=== PATIENT | female | born 1965 | race Caucasian/White ===

== ENCOUNTER 2018-12-03 10:42 | Outpatient (REF) | payer BC, SELFPAY ==
[2018-12-03 19:53] LABS: TSH (W/Ref FT4) 1.08 uIU/mL (0.358-3.74)
== END 2018-12-03 11:02 ==
LOC: NCHCN 10:42
PROVIDERS: PCP Nurse Practitioner; Visit Provider Nurse Practitioner
DX: R53.83 Other fatigue (principal)
CPT/HCPCS: 84443

== ENCOUNTER 2019-01-19 00:12 | Outpatient (CLI) | payer BC, SELFPAY ==
--- NOTE | 2019-01-19 09:52 | DI.MAMMO_ITS ---
SYMPTOMS/DIAGNOSIS: [facility], Z00.00 MAMMOGRAMS: Mammograms were interpreted according to the usual protocol including computer analysis with CAD system, tomosynthesis and C view imaging. The breast tissue is heterogeneously radiodense, which lowers the sensitivity of the study. There is no dominant mass. There are no suspicious calcifications and there has been no significant interval change when compared with prior images. SUMMARY: No evidence of malignancy, category 1. Yearly screening mammography is recommended. Breast density category C. SA ASSESSMENT OF FINDINGS: Negative. Category 1. Patient will receive a letter notifying them of these results. Bi-RADS category C. The breasts are heterogeneously dense, which may obscure small masses.
== END 2019-01-19 00:32 ==
PROVIDERS: PCP Nurse Practitioner; Visit Provider Nurse Practitioner
DX: Z12.31 Encounter for screening mammogram for malignant neoplasm of breast (principal); Z00.00 Encounter for general adult medical examination without abnormal findings
CPT/HCPCS: 77063; 77067

== ENCOUNTER 2020-04-19 08:00 | Outpatient (REF) | payer BC, SELFPAY ==
[2020-04-19 14:15] LABS: Calculated LDL 206 mg/dL (<100); Cholesterol 286 mg/dL (<200); Glucose 90 mg/dL (74-106); HDL Cholesterol 57 mg/dL (40-60); TSH (W/Ref FT4) 1.34 uIU/mL (0.36-3.74); Triglyceride 115 mg/dL (<150)
[2020-04-20 04:51] LABS: Vitamin D 25 Total 33.1 ng/ml (30-100)
== END 2020-04-19 08:20 ==
LOC: NCHCN 08:00
PROVIDERS: PCP Nurse Practitioner; Visit Provider Nurse Practitioner
DX: Z13.1 Encounter for screening for diabetes mellitus (principal); Z13.220 Encounter for screening for lipoid disorders; Z13.21 Encounter for screening for nutritional disorder; R53.83 Other fatigue
CPT/HCPCS: 80061; 82306; 82947; 84443

== ENCOUNTER 2021-01-02 10:16 | Outpatient (REF) | payer BC, SELFPAY ==
[2021-01-02 16:37] LABS: Calculated LDL 204 mg/dL (<100); Cholesterol 287 mg/dL (<200); HDL Cholesterol 57 mg/dL (40-60); Triglyceride 132 mg/dL (<150)
[2021-01-02 21:11] LABS: CRP, High Sensitivity 0.48 mg/L (See Note)
== END 2021-01-02 10:17 | disposition home or self-care (01) ==
LOC: NCHCN 10:16
PROVIDERS: PCP Nurse Practitioner; Visit Provider Nurse Practitioner
DX: E78.5 Hyperlipidemia, unspecified (principal)
CPT/HCPCS: 80061; 86141

== ENCOUNTER 2021-01-04 01:50 | Outpatient (CLI) | payer BC, SELFPAY ==
--- NOTE | 2021-01-04 12:30 | DI.RAD_ITS ---
EXAM: XR LUMBAR SPINE COMPLETE CLINICAL HISTORY: CHRONIC LOW BACK PAIN, M54.5. TECHNIQUE: 2D digital imaging was performed. COMPARISON: No exams were available for comparison FINDINGS: There is no evidence of fracture. However, there is advanced disc space narrowing at L3-4 level, mor e so on the right side of this disc space than the left side and there is an element of retrolisthesi s of L3 relative to L4 seen on the lateral view. There is also significant disc space narrowing at L 4-5 and L5-S1 levels which is relatively symmetrical, perhaps slightly more so on the right side. Ri ght-sided osteophytes are noted at L3-4 and L4-5 levels. Sacroiliac joints appear unremarkable. Deg enerative disc disease also noted in the lower lumbar spine. Some degenerative changes are evident i n the facet joints, most evident at L2-3 level left side. IMPRESSION: Degenerative disc disease. Degenerative retrolisthesis L3 relative to L4. DATA REPOSITORY: RADIATION DOSE DELIVERED:
== END 2021-01-04 02:10 ==
PROVIDERS: PCP Nurse Practitioner; Visit Provider Nurse Practitioner
DX: M54.5 Low back pain (principal); M51.37 Other intervertebral disc degeneration, lumbosacral region
CPT/HCPCS: 72110

== ENCOUNTER 2021-01-22 01:52 | Outpatient (CLI) | payer BC, SELFPAY ==
--- NOTE | 2021-01-22 | DI.MAMMO_ITS ---
EXAM: MG MAMMO SCREENING CLINICAL HISTORY: SCREENING, Z12.39. TECHNIQUE: Bilateral full field digital CC and MLO mammographic images were obtained with 3D tomosyn thesis and utilizing computer aided detection (CAD). COMPARISON: Prior mammogram performed January 2019 her baseline 2010 mammogram is apparently not avail able at the time of this dictation. FINDINGS: The fibroglandular tissue is moderately dense, this decreasing the sensitivity mammogram for finding in underlying lesions. In the medial aspect of the left breast approximately 7 cm in from the nipple there is a spiculated d ensity measuring 6 x 5 millimeters which was not evident on the 2019 mammogram and which is suspiciou s and requires additional spot compression view and ultrasound. On the ipsilateral MLO view there is a asymmetric density seen inferiorly measuring 5 x 5 millimeters located 5-6 cm in from the nipple w hich is unchanged from 2019. There are few benign microcalcifications in the left breast noted. No malignant-appearing microcalcification groups. In the opposite-right breast there is an asymmetric density located medially which is approximately 6 cm in from the nipple and measures approximately 1.5 x 0.8 cm but is unchanged from 2019. No new architectural distortion or skin thickening-traction. IMPRESSION: Asymmetric densities bilaterally. One in the medial aspect of the left breast was not evident on the prior study and is concerning. Spot compression views of both breasts as well as bilateral breast u ltrasound are recommended. BI-RADS Category 0 - Assessment Incomplete: Need additional imaging evaluation Breast Density - Category C - Heterogeneously dense Breast density Category C or D implies that the patient has dense breast tissue. Dense breast tissue can make it harder to find cancer on a mammogram. Dense breast tissue is also associated with an incr eased risk of breast cancer. This information about the result of the mammogram report was provided to the patient to raise their awareness. Use this report when you speak with the patient about their risks for breast cancer, which includes their family history. At that time, you may recommend additional screening tests (Ultrasoun d or MRI) as these tests may add significant information. A negative radiographic report should not delay biopsy if a dominant or clinically suspicious mass is present. Up to ten percent of cancers are not identified on mammography. A negative report may reinforce clinical impression. Adenosis and dense breasts may obscure an underlying neoplasm. False positive reports average 6 to 10%. Patient will receive a letter notifying them of these results.
== END 2021-01-22 02:12 ==
PROVIDERS: PCP Nurse Practitioner; Visit Provider Nurse Practitioner
DX: Z12.31 Encounter for screening mammogram for malignant neoplasm of breast (principal); R92.8 Other abnormal and inconclusive findings on diagnostic imaging of breast
CPT/HCPCS: 77063; 77067

== ENCOUNTER 2021-02-06 01:18 | Outpatient (CLI) | payer BC, MEDICAID, SELFPAY ==
--- NOTE | 2021-02-06 | DI.US_ITS ---
Exam(s) US BREAST RT LIMITED US BREAST LT LIMITED MG MAMMO SCREEN CALL BACK BI EXAM: MG MAMMO SCREEN CALL BACK BI and bilateral U/S breast limited CLINICAL HISTORY: F/U MAMMO, LT BREAST SPICULATED DENSITY,RT BREAST ASYMMETRIC DENSITY. TECHNIQUE: Craniocaudal and mediolateral oblique Full Field Digital Mammography views of the bilater al breast with Computer Aided Diagnosis followed by Tomosynthesis and bilateral breast ultrasound. COMPARISON: Priors are available for comparison. FINDINGS: Mammography/Tomosynthesis: Masses/Architectural Distortion: None seen. Microcalcifictions: No suspicious pleomorphic-type are seen. Skin Thickening/Nipple Retraction: None. Bilateral breast US: Targeted bilateral breast ultrasound was obtained. Echotexture: Normal appearance of the glandular tissue. Shadowing: No suspicious foci. Cyst: None. Solid lesions: None seen. Ductal dilation: None. IMPRESSION: 1. No evidence of malignancy is noted. 2. A six-month follow-up bilateral mammogram is recommended for re-evaluation. 3. The findings were discussed with the patient on the date of the examination. BI-RADS Category 3 - 6 month - Probably Benign Finding: Recommend follow-up imaging in 6 months Breast Density - Category C - Heterogeneously dense Breast density Category C or D implies that the patient has dense breast tissue. Dense breast tissue can make it harder to find cancer on a mammogram. Dense breast tissue is also associated with an incr eased risk of breast cancer. This information about the result of the mammogram report was provided to the patient to raise their awareness. Use this report when you speak with the patient about their risks for breast cancer, which includes their family history. At that time, you may recommend additional screening tests (Ultrasoun d or MRI) as these tests may add significant information. A negative radiographic report should not delay biopsy if a dominant or clinically suspicious mass is present. Up to ten percent of cancers are not identified on mammography. A negative report may reinforce clinical impression. Adenosis and dense breasts may obscure an underlying neoplasm. False positive reports average 6 to 10%. Patient will receive a letter notifying them of these results.
== END 2021-02-06 01:38 ==
PROVIDERS: PCP Nurse Practitioner; Visit Provider Nurse Practitioner
DX: Z12.31 Encounter for screening mammogram for malignant neoplasm of breast (principal); R92.8 Other abnormal and inconclusive findings on diagnostic imaging of breast; N64.59 Other signs and symptoms in breast
CPT/HCPCS: 76642; 77063; 77067

== ENCOUNTER 2021-05-18 03:16 | Outpatient (CLI) | payer MEDICAID, SELFPAY ==
--- NOTE | 2021-05-18 14:16 | DI.RAD_ITS ---
Exam(s) XR CERVICAL SPINE COMP 4-5V EXAM: XR CERVICAL SPINE COMP 4-5V CLINICAL HISTORY: CERVICALGIA,M54.2. TECHNIQUE: 2D digital imaging was performed. COMPARISON: No exams were available for comparison FINDINGS: The odontoid is intact. The lateral masses are well aligned. There is reversal of the normal cervic al lordosis centered at C5. There is disc space narrowing at C5-C6 and C6-C7. Endplate osteophytes are seen throughout the cervical spine with sparing of the C2-3 level. No acute fractures or subluxa tions are present. There is mild narrowing of the neural foramen on the right at C4-5 and C6-C7 and moderate narrowing at C5-C6. There is mild neural foraminal narrowing on the left at C4-5 through C6 -C7. IMPRESSION: Bqnk-hc-dicchwfl cervical spondylosis. DATA REPOSITORY: RADIATION DOSE DELIVERED:
== END 2021-05-18 03:36 ==
PROVIDERS: PCP Nurse Practitioner; Visit Provider Nurse Practitioner
DX: M47.812 Spondylosis without myelopathy or radiculopathy, cervical region (principal)
CPT/HCPCS: 72050

== ENCOUNTER 2021-11-08 01:33 | Outpatient (CLI) | payer MEDICAID, SELFPAY ==
--- NOTE | 2021-11-08 14:18 | DI.MAMMO_ITS ---
Exam(s) MAMMO DIAGNOSTIC BI EXAM: MAMMO DIAGNOSTIC BI CLINICAL HISTORY: 6-MO F/U ABNL MAMMO, R92.8 TECHNIQUE: Mammograms were interpreted according to the usual protocol including computer analysis w ith CAD system, tomosynthesis and C-view imaging. COMPARISON: FINDINGS: The breasts are heterogeneously dense. No dominant mass or clumped microcalcification is identified in either breast. The current examination is compared with previous examinations including January and there has been no gross interval change in appearance comparison with prior studies. Areas of questionable asymmetric density noted on prior examination are unchanged or less prominent today. IMPRESSION: No specific evidence of malignancy at this time. Follow-up mammogram suggested in 12 months. BI-RADS Category 2 - Benign Findings Breast Density - Category C - Heterogeneously dense
== END 2021-11-08 01:53 ==
PROVIDERS: PCP Nurse Practitioner; Visit Provider Nurse Practitioner
DX: R92.8 Other abnormal and inconclusive findings on diagnostic imaging of breast (principal); N64.59 Other signs and symptoms in breast
CPT/HCPCS: 77062; 77066; G0279

== ENCOUNTER 2022-01-24 14:09 | Outpatient (REF) | payer MEDICAID, SELFPAY ==
--- NOTE | 2022-01-24 11:04 | PAPFT_PTH ---
PATIENT: Asuncion Rausch LOC: NCN #:[id number] AGE/SX: 56/F ROOM: RE01/24/[address]: Loren Marks : 1965 BED: DIS: 01/24/2022 SPEC #: [id number] RECD: 01/24/22 17:08 STATUS: RODNEY SANCHEZ #: [id number] YESSENIA: 01/24/22 11:[address]: Loren Marks DEPT: [facility] Cytology RECD BY: Rema Andrew Tissues: 1 - CX/ENDOCX FOR PAP SMEARS Procedures: PAP THIN PREP/UVM Screening HPV DNA PROBE Comments: [id number]
== END 2022-01-24 14:10 | disposition home or self-care (01) ==
LOC: NCHCN 14:09
PROVIDERS: PCP Nurse Practitioner; Visit Provider Nurse Practitioner Family
DX: Z12.4 Encounter for screening for malignant neoplasm of cervix (principal); Z11.51 Encounter for screening for human papillomavirus (HPV)
CPT/HCPCS: 88142; 87624

== ENCOUNTER 2022-03-12 08:37 | Outpatient (REF) | payer MEDICAID, SELFPAY ==
[2022-03-12 15:47] LABS: Anion Gap 9.7 mmol/L (3-11); BUN 15 mg/dL (7-18); CO2 25.3 mmol/L (21.0-32.0); CREATININE 0.8 mg/dL (0.55-1.02); Calcium 8.8 mg/dL (8.5-10.1); Calculated LDL 103 mg/dL (<100); Chloride 103 mmol/L (98-107); Cholesterol 174 mg/dL (<200); Glucose 97 mg/dL (74-106); HDL Cholesterol 58 mg/dL (40-60); Potassium 4.2 mmol/L (3.5-5.1); Sodium 138 mmol/L (136-145); Triglyceride 69 mg/dL (<150)
== END 2022-03-12 08:38 | disposition home or self-care (01) ==
LOC: NCHCN 08:37
PROVIDERS: PCP Nurse Practitioner Family; Visit Provider Nurse Practitioner Family
DX: E78.5 Hyperlipidemia, unspecified (principal)
CPT/HCPCS: 80048; 80061

== ENCOUNTER 2022-12-16 17:30 | Outpatient (CLI) | payer MEDICAID, SELFPAY ==
--- NOTE | 2022-12-16 | DI.RAD_ITS ---
Exam(s) XR CERVICAL SPINE COMP 4-5V EXAM: XR CERVICAL SPINE COMP 4-5V CLINICAL HISTORY: UPPER BACK PAIN, M54.9. TECHNIQUE: 2D digital imaging was performed. Six images were obtained. AP, odontoid, lateral and chandrika ateral oblique images were obtained. COMPARISON: CR XR CERVICAL SPINE COMP 4-5V from 05/18/2021 FINDINGS: The odontoid is intact. The lateral masses are well aligned. There is straightening of the normal ce rvical lordosis. There are endplate osteophytes from C3-C4 through C7-T1. Disc space narrowing is s een at C5-6 and C6-C7. No acute fracture or subluxation is present. There is mild narrowing of the ne ural foramen on the left at C4-C5 and on the right at C6-C7 and C7-T1. The cervical thoracic junction is well maintained. The prevertebral soft tissues are unremarkable. Lung apices are clear. IMPRESSION: Moderate cervical spondylosis. DATA REPOSITORY: RADIATION DOSE DELIVERED:
--- NOTE | 2022-12-16 | DI.RAD_ITS ---
Exam(s) XR SHOULDER LT COMPLETE 2+V EXAM: XR SHOULDER LT COMPLETE 2+V CLINICAL HISTORY: UPPER BACK PAIN, M54.9. TECHNIQUE: 2D digital imaging was performed of the left shoulder. Five images were obtained. AP, G rashey, Y-view and axillary views were obtained. COMPARISON: No exams were available for comparison FINDINGS: BONES: No acute fracture is present. No bony destructive lesion is seen. JOINTS: No dislocation present. SOFT TISSUE: Normal. IMPRESSION: Unremarkable radiographs of the left shoulder. DATA REPOSITORY: RADIATION DOSE DELIVERED:
== END 2022-12-16 17:50 ==
LOC: DI 17:30
PROVIDERS: PCP Nurse Practitioner Family; Visit Provider Nurse Practitioner Family
DX: M54.89 Other dorsalgia (principal); M25.512 Pain in left shoulder; M54.2 Cervicalgia; M50.322 Other cervical disc degeneration at C5-C6 level; M50.323 Other cervical disc degeneration at C6-C7 level; M47.812 Spondylosis without myelopathy or radiculopathy, cervical region
CPT/HCPCS: 72050; 73030

== ENCOUNTER 2023-01-20 15:15 | Outpatient (REF) | payer MEDICAID, SELFPAY ==
[2023-01-20 21:39] LABS: Abs Immature Grans 0.02 10^3/uL (0.0-0.06); Absolute Basophil Count 0.03 10^3/uL (0.0-0.2); Absolute Eosinophil Count 0.15 10^3/uL (0.0-0.7); Absolute Lymphocyte Count 1.59 10^3/uL (1.2-3.4); Absolute Monocyte Count 0.54 10^3/uL (0.1-0.8); Absolute Neutrophil Count 5.02 10^3/uL (1.2-6.7); Basophils % 0.4; HCT 39.8 % (36.0-46.0); HGB 13.1 g/dL (11.2-15.7); Immature Grans % 0.3; Lymphocytes % 21.6; MCH 29.1 pg (27.0-33.0); MCHC 32.9 % (32.0-36.0); MCV 88 fL (80-95); MPV 10.2 fL (8.0-11.0); Monocytes % 7.3; Neutrophils % 68.4; Platelet Count 288 10^3/uL (130-400); RDW 12.3 % (11.7-14.6); WBC 7.35 10^3/uL (4.4-10.8)
[2023-01-20 21:55] LABS: Iron 86 ug/dL (50-170); Total Iron Binding Capacity 305 ug/dL (250-450); Transferrin Sat 28 % (15-50)
[2023-01-20 21:57] LABS: Hemoglobin A1C 5.9 % (<5.7)
[2023-01-20 22:17] LABS: Vitamin D 25 Total 52.2 ng/mL (30-100)
[2023-01-20 22:22] LABS: ALT 21 U/L (14-59); AST 18 U/L (15-37); Albumin 3.6 g/dL (3.4-5.0); Alkaline Phosphatase 78 U/L (46-116); Anion Gap 6.5 mmol/L (3-11); BUN 16 mg/dL (7-18); Bilirubin, Total 0.2 mg/dL (0.2-1.0); CO2 27.5 mmol/L (21.0-32.0); CREATININE 0.7 mg/dL (0.55-1.02); Calcium 8.9 mg/dL (8.5-10.1); Calculated LDL 185 mg/dL (<100); Chloride 106 mmol/L (98-107); Cholesterol 265 mg/dL (<200); Estimated GFR 99.57 (mL/min/1.73m2); Ferritin 97 ng/mL (8-252); Glucose 96 mg/dL (74-106); HDL Cholesterol 51 mg/dL (40-60); Sodium 140 mmol/L (136-145); TSH 0.72 uIU/mL (0.36-3.74); Total Protein 6.7 g/dL (6.4-8.2); Triglyceride 145 mg/dL (<150); Vitamin B12 1005 pg/mL (193-986)
[2023-01-20 22:44] LABS: FREE T4 0.86 ng/dL (0.76-1.46)
[2023-01-21 19:03] LABS: T3,Free 3.5 pg/mL (2.8-5.3)
== END 2023-01-20 15:16 | disposition home or self-care (01) ==
LOC: NCHCN 15:15
PROVIDERS: PCP Nurse Practitioner Family; Visit Provider Nurse Practitioner Family
DX: E78.5 Hyperlipidemia, unspecified (principal); R53.83 Other fatigue; R51.9 Headache, unspecified; R63.1 Polydipsia; Z83.3 Family history of diabetes mellitus; K59.00 Constipation, unspecified; R73.09 Other abnormal glucose; Z13.0 Encounter for screening for diseases of the blood and blood-forming organs and certain disorders involving the immune mechanism; Z13.21 Encounter for screening for nutritional disorder
CPT/HCPCS: 80053; 80061; 82306; 82607; 82728; 83036; 83540; 83550; 84439; 84443; 84481; 85025

== ENCOUNTER 2023-02-07 00:17 | Outpatient (CLI) | payer MEDICAID, SELFPAY ==
--- NOTE | 2023-02-07 | DI.MAMMO_ITS ---
Exam(s) US BREAST RT COMPLETE MG MAMMO DIAGNOSTIC BI EXAM: MG MAMMO DIAGNOSTIC BI AND COMPLETE RIGHT BREAST ULTRASOUND CLINICAL HISTORY: INVERTED NIPPLE,N64.59, H/O ABNL MAMMO IN 2020,R92.8. TECHNIQUE: BOTH CC AND MLO mammographic images of both breasts were obtained with 3D tomosynthesis t echnique and utilizing computer aided detection (CAD). Also performed bilateral spot compression vie ws. Also performed complete right breast ultrasound including all 4 quadrants as well as the retroareolar region. Also scanned right axilla. COMPARISON: Prior mammograms were reviewed.Prior breast ultrasound examinations February 2021 reviewed. This 57-year-old patient is apparently complaining of recent onset of right nipple inversion. Denies discharge from the nipple. Denies recent trauma/infection. FINDINGS: DIAGNOSTIC BILATERAL MAMMOGRAM: The fibroglandular tissue pattern is again noted be moderately dense. Asymmetric tissue in the medial aspect of both breasts is again noted but is unchanged from prior zack dies. Slight in the version of the right nipple appears unchanged from prior mammograms. There does not appear to be a new mass nor new architectural distortion in the retroareolar region of the right breast. Also no new malignant-appearing microcalcification groups. There are no new spiculated masses nor malignant-appearing microcalcification groups in either breast . Spot compression views of the asymmetric tissue in both breasts again render these areas less conc erning and similar in appearance to prior mammograms. There is no new architectural distortion nor skin thickening-retraction in either breast. COMPLETE RIGHT BREAST ULTRASOUND: There is no evidence of solid or significant cystic lesions in all 4 quadrants of the right breast no r in the retroareolar region. There are no dilated ducts nor inspissated ducts in the retroareolar r egion. Scanning of the right axilla is negative for adenopathy. IMPRESSION: 1. No radiographic evidence of malignancy in either breast. 2. Negative complete right breast ultrasound Appropriate follow-up is referral to breast surgeon because of the recent history of inverting right breast nipple. Might also consider breast MRI. The patient was informed of the findings and follow-up recommendations by myself prior to leaving the department today. BI-RADS Category 0 - Assessment Incomplete: Need additional imaging evaluation, specifically referral to breast surgeon. Also consider breast MRI given the recent history here. Breast Density - Category C - Heterogeneously dense Breast density Category C or D implies that the patient has dense breast tissue. Dense breast tissue can make it harder to find cancer on a mammogram. Dense breast tissue is also associated with an incr eased risk of breast cancer. This information about the result of the mammogram report was provided to the patient to raise their awareness. Use this report when you speak with the patient about their risks for breast cancer, which includes their family history. At that time, you may recommend additional screening tests (Ultrasoun d or MRI) as these tests may add significant information. A negative radiographic report should not delay biopsy if a dominant or clinically suspicious mass is present. Up to ten percent of cancers are not identified on mammography. A negative report may reinforce clinical impression. Adenosis and dense breasts may obscure an underlying neoplasm. False positive reports average 6 to 10%. Patient will receive a letter notifying them of these results.
== END 2023-02-07 00:37 ==
LOC: DI 00:19
PROVIDERS: PCP Nurse Practitioner Family; Visit Provider Nurse Practitioner Family
DX: R92.8 Other abnormal and inconclusive findings on diagnostic imaging of breast (principal); Z12.31 Encounter for screening mammogram for malignant neoplasm of breast; N64.59 Other signs and symptoms in breast
CPT/HCPCS: 76642; 77062; 77066; G0279

== ENCOUNTER 2025-01-28 15:59 | Outpatient (REF) | payer BC, SELFPAY ==
[2025-01-28 21:24] LABS: Abs Immature Grans 0.05 10^3/uL (0.0-0.06); Absolute Basophil Count 0.01 10^3/uL (0.0-0.2); Absolute Lymphocyte Count 1.27 10^3/uL (1.2-3.4); Absolute Monocyte Count 0.25 10^3/uL (0.1-0.8); Absolute Neutrophil Count 6.31 10^3/uL (1.2-6.7); Basophils % 0.1 %; HCT 40.8 % (36.0-46.0); HGB 13.6 g/dL (11.2-15.7); Immature Grans % 0.6 %; Lymphocytes % 16.1 %; MCH 29.6 pg (27.0-33.0); MCHC 33.3 % (32.0-36.0); MCV 89 fL (80-95); MPV 10.4 fL (8.0-11.0); Monocytes % 3.2 %; Platelet Count 321 10^3/uL (130-400); RBC 4.59 10^6/uL (3.93-5.22); RDW 12.2 % (11.7-14.6); RDW-SD 39.6 fL; WBC 7.89 10^3/uL (4.4-10.8)
[2025-01-28 21:36] LABS: Iron 87 ug/dL (50-170); Total Iron Binding Capacity 348 ug/dL (250-450); Transferrin Sat 25 % (15-50)
[2025-01-28 22:04] LABS: ALT 15 U/L (14-59); AST 14 U/L (15-37); Albumin 3.7 g/dL (3.4-5.0); Alkaline Phosphatase 82 U/L (46-116); Anion Gap 5.8 mmol/L (3-11); BUN 18 mg/dL (7-18); Bilirubin, Total 0.2 mg/dL (0.2-1.0); CO2 29.2 mmol/L (21.0-32.0); CREATININE 0.7 mg/dL (0.55-1.02); Calcium 9.4 mg/dL (8.5-10.1); Calculated LDL 220 mg/dL (<100); Chloride 106 mmol/L (98-107); Cholesterol 313 mg/dL (<200); Estimated GFR 98.34 (mL/min/1.73m2); Ferritin 62 ng/mL (8-252); Glucose 107 mg/dL (74-106); HDL Cholesterol 75 mg/dL (>or=50); Potassium 4.9 mmol/L (3.5-5.1); Sodium 141 mmol/L (136-145); TSH (W/Ref FT4) 0.76 uIU/mL (0.36-3.74); Total Protein 7.1 g/dL (6.4-8.2); Triglyceride 93 mg/dL (<150); Vitamin B12 821 pg/mL (193-986); Vitamin D 25 Total 37 ng/mL (30-100)
[2025-01-28 22:07] LABS: Hemoglobin A1C 5.9 % (<5.7)
[2025-01-31 11:38] LABS: Lyme Ab w Rflx to Lyme Confirm Negative (Negative)
[2025-02-01 15:09] LABS: Anaplasma phagocytophilum Negative (Negative); B. miyamotoi PCR Negative (Negative); Babesia divergens/MO-1 Negative (Negative); Babesia duncani Negative (Negative); Babesia microti Negative (Negative); Ehrlichia chaffeensis Negative (Negative); Ehrlichia ewingii/canis Negative (Negative); Ehrlichia muris eauclairensis Negative (Negative)
== END 2025-01-28 16:00 | disposition home or self-care (01) ==
LOC: NCHCN 15:59
PROVIDERS: Visit Provider Nurse Practitioner Family
DX: R53.83 Other fatigue (principal); R73.03 Prediabetes
CPT/HCPCS: 80053; 80061; 82306; 87798; 82607; 82728; 83036; 83540; 83550; 84443; 85025; 86618

== ENCOUNTER 2025-02-14 14:59 | Outpatient (REF) | payer BC, SELFPAY ==
[2025-02-14 21:36] LABS: ESR 11 mm/hr (0-30)
[2025-02-14 21:37] LABS: Abs Immature Grans 0.02 10^3/uL (0.0-0.06); Absolute Basophil Count 0.05 10^3/uL (0.0-0.2); Absolute Eosinophil Count 0.17 10^3/uL (0.0-0.7); Absolute Lymphocyte Count 2.23 10^3/uL (1.2-3.4); Absolute Neutrophil Count 4.35 10^3/uL (1.2-6.7); Basophils % 0.7 %; Eosinophils % 2.3 %; HCT 43.1 % (36.0-46.0); HGB 14.4 g/dL (11.2-15.7); Immature Grans % 0.3 %; Lymphocytes % 30.5 %; MCH 29.4 pg (27.0-33.0); MCHC 33.4 % (32.0-36.0); MCV 88 fL (80-95); MPV 10.4 fL (8.0-11.0); Monocytes % 6.8 %; Neutrophils % 59.4 %; Platelet Count 303 10^3/uL (130-400); RBC 4.89 10^6/uL (3.93-5.22); RDW 12.2 % (11.7-14.6); RDW-SD 39.6 fL; WBC 7.32 10^3/uL (4.4-10.8)
[2025-02-14 21:38] LABS: Bilirubin Negative (Negative); Blood Negative (Negative); Clarity Clear (Clear); Glucose Negative (Negative); Ketones Negative (Negative); Leukocyte Esterase Negative (Negative); Nitrite Negative (Negative); Specific Gravity <= 1.005 (1.005-1.025); Urobilinogen 0.2 mg/dL (Up to 0.2); pH 5.5 (5-8)
[2025-02-14 21:59] LABS: ALT 19 U/L (14-59); AST 17 U/L (15-37); Alkaline Phosphatase 82 U/L (46-116); Anion Gap 6.7 mmol/L (3-11); BUN 16 mg/dL (7-18); Bilirubin, Total 0.3 mg/dL (0.2-1.0); CO2 28.3 mmol/L (21.0-32.0); CREATININE 0.8 mg/dL (0.55-1.02); Calcium 9.7 mg/dL (8.5-10.1); Chloride 105 mmol/L (98-107); Estimated GFR 83.78 (mL/min/1.73m2); Glucose 86 mg/dL (74-106); Potassium 4.4 mmol/L (3.5-5.1); Sodium 140 mmol/L (136-145); TSH (W/Ref FT4) 0.91 uIU/mL (0.36-3.74); Total Protein 7.4 g/dL (6.4-8.2)
[2025-02-14 22:10] LABS: C-Reactive Protein < 0.50 mg/dL (<or=0.5)
[2025-02-15 10:18] LABS: *AMPHETAMINES SCREEN URINE Negative (Negative); *BARBITURATES SCREEN URINE Negative (Negative); *BENZODIAZEPINES SCREEN URINE Negative (Negative); Cannabinoids THC Negative (Negative); Cocaine Screen,Urine Negative (Negative); METHADONE URINE SCREEN Negative (Negative); OPIATES URINE SCREEN Negative (Negative)
[2025-02-15 10:22] LABS: Tricyclic Antidepressants Negative (Negative)
[2025-02-15 21:07] LABS: Calculated LDL 147 mg/dL (<100); Cholesterol 238 mg/dL (<200); HDL Cholesterol 64 mg/dL (>or=50); Triglyceride 136 mg/dL (<150)
== END 2025-02-14 15:00 | disposition home or self-care (01) ==
LOC: NCHCN 14:59
PROVIDERS: PCP Nurse Practitioner Family; Visit Provider Nurse Practitioner Family
DX: G45.4 Transient global amnesia (principal)
CPT/HCPCS: 80053; 80061; 80307; 85652; 81003; 84443; 85025; 86140

== ENCOUNTER 2025-03-22 14:10 | Outpatient (REF) | payer BC, SELFPAY ==
[2025-03-22 16:07] LABS: Calculated LDL 185 mg/dL (<100); Cholesterol 280 mg/dL (<200); HDL Cholesterol 53 mg/dL (>or=50); Triglyceride 211 mg/dL (<150)
== END 2025-03-22 14:11 | disposition home or self-care (01) ==
LOC: NCHCN 14:10
PROVIDERS: PCP Nurse Practitioner Family; Visit Provider Nurse Practitioner Family
DX: E78.5 Hyperlipidemia, unspecified (principal)
CPT/HCPCS: 80061

== ENCOUNTER 2025-03-30 00:27 | Outpatient (CLI) | payer BC, SELFPAY ==
--- NOTE | 2025-03-30 | DI.MRI_ITS ---
Exam(s) MR BRAIN WO/W EXAM: MR BRAIN WO/W CLINICAL HISTORY: Transient global amnesia G45.4. TECHNIQUE: Multiplanar multisequence MRI of the brain was performed. CONTRAST MATERIAL: IV Contrast: 13 ML of Dotarem contrast administered. COMPARISON: No exams were available for comparison FINDINGS: VENTRICLES AND EXTRA AXIAL SPACES: Normal in size and morphology for the patient's age. HEMORRHAGE: None. CEREBRAL PARENCHYMA: No focus of restricted diffusion to suggest acute infarct. No space-occupying lesion identified. No significant atrophy. Minimal scattered a tiny high signal foci in the white matter, likely reflecting microvascular changes. BRAINSTEM/CEREBELLUM: Normal. CALVARIUM: Normal. ENHANCEMENT: No suspicious enhancement identified. VISUALIZED PARANASAL SINUSES/MASTOIDS: Clear mucous retention in the maxillary sinuses, right greater than left. Orbits: Unremarkable. Pituitary: Not enlarged. Vasculature: Normal flow voids. IMPRESSION: Chronic sinus disease. No acute abnormality. DATA REPOSITORY:
[2025-03-30] MEDS: Gadoterate meglumine 20 ML SYRINGE IVP (13:14)
[2025-03-30] MEDS: Normal Saline Flush 10 ML SYR IVP (13:15)
== END 2025-03-30 00:47 ==
PROVIDERS: PCP Nurse Practitioner Family; Visit Provider Nurse Practitioner Family
DX: G45.4 Transient global amnesia (principal)
CPT/HCPCS: 70553

== ENCOUNTER 2025-05-23 19:15 | Outpatient (REF) | payer BC, SELFPAY ==
[2025-05-23 15:58] LABS: ALT 18 U/L (14-59); AST 20 U/L (15-37); Albumin 3.9 g/dL (3.4-5.0); Alkaline Phosphatase 83 U/L (46-116); Anion Gap 9.7 mmol/L (3-11); BUN 15 mg/dL (7-18); Bilirubin, Total 0.4 mg/dL (0.2-1.0); CO2 28.3 mmol/L (21.0-32.0); Calcium 9.3 mg/dL (8.5-10.1); Calculated LDL 164 mg/dL (<100); Chloride 102 mmol/L (98-107); Cholesterol 240 mg/dL (<200); Estimated GFR 102.06 (mL/min/1.73m2); Glucose 95 mg/dL (74-106); HDL Cholesterol 59 mg/dL (>or=50); Potassium 4.2 mmol/L (3.5-5.1); Sodium 140 mmol/L (136-145); Total Protein 6.9 g/dL (6.4-8.2); Triglyceride 86 mg/dL (<150)
== END 2025-05-23 19:16 | disposition home or self-care (01) ==
LOC: NCHCN 19:15
PROVIDERS: PCP Nurse Practitioner Family; Visit Provider Nurse Practitioner Family
DX: E78.5 Hyperlipidemia, unspecified (principal)
CPT/HCPCS: 80053; 80061